=== PATIENT | male | born 1965 | race Caucasian/White ===

== ENCOUNTER → 2022-03-25 | Day surgery (SDC) | payer MEDICARE, MEDICAID ==
[~2022-03-25] VITALS: Ht 182.9 cm; Wt 104.3 kg
[~2022-03-25] MED LIST: ACETAMINOPHEN 325MG TABLET PO PRN; ASPI-1406 MT; ATROPINE SULFATE 1MG/10ML SYR IV PRN; FENTANYL CITRATE/PF 50MCG/ML 2ML VIAL ONE; HEPARIN 1000 UNITS/ML 10ML ONE; HEPARIN SODIUM 1,000 UNIT/1ML VIAL IV ONE; IODIXANOL 320MG/ML 100 ML BOTTLE IV ONE; LIDOCAINE HCL 1% 10 MG/ML 10ML VIAL ONE; LIP40 MT; LISI20TA31 MT; METO-396 MT; MIDAZOLAM HCL 2 MG/2 ML VIAL ONE; NICARDIPINE 100MCG/ML 10ML VIAL (CATH LAB) IV ONE; NITROGLYCERIN 50MCG/ML 10ML VIAL (CATH LAB) IV ONE; ONDANSETRON HCL 4MG/2ML INJ IV PRN; TAMS-11 MT
== END | disposition home or self-care (01) ==
LOC: CCL 08:16
PROVIDERS: ATTEND Specialist
DX: R94.39 Abnormal result of other cardiovascular function study (principal); I25.10 Atherosclerotic heart disease of native coronary artery without angina pectoris; I12.9 Hypertensive chronic kidney disease with stage 1 through stage 4 chronic kidney disease, or unspecified chronic kidney disease; N18.9 Chronic kidney disease, unspecified; E78.5 Hyperlipidemia, unspecified; E66.09 Other obesity due to excess calories; G47.33 Obstructive sleep apnea (adult) (pediatric); I25.2 Old myocardial infarction; N40.0 Benign prostatic hyperplasia without lower urinary tract symptoms; Z79.82 Long term (current) use of aspirin; Z79.899 Other long term (current) drug therapy; Z86.73 Personal history of transient ischemic attack (TIA), and cerebral infarction without residual deficits; Z98.890 Other specified postprocedural states; Z20.822 Contact with and (suspected) exposure to COVID-19
CPT/HCPCS: 85347; 87426; 93458; 93571; C1769; C1887; C1893; C9803; J1644; J2250; J3010; J3490; Q9967; 99152; 99153; G0500